=== PATIENT | female | born 1990 | race African-American/Black ===

== ENCOUNTER 2019-10-22 13:08 | Emergency (ER) | payer BC ==
[~2019-10-22] VITALS: Ht 167.6 cm; Wt 66.2 kg
[2019-10-22 13:27] VITALS: BP 113/71
== END 2019-10-22 13:36 | disposition home or self-care (01) ==
LOC: ER 13:17
DX: S16.1XXA Strain of muscle, fascia and tendon at neck level, initial encounter (principal); R51 Headache; R42 Dizziness and giddiness; Z88.8 Allergy status to other drugs, medicaments and biological substances; V49.59XA Passenger injured in collision with other motor vehicles in traffic accident, initial encounter; Y93.89 Activity, other specified; Y92.488 Other paved roadways as the place of occurrence of the external cause; Y99.8 Other external cause status